=== PATIENT | female | born 1955 | race Native Hawaiian/Other Pacific Islander ===

== ENCOUNTER 2017-12-24 21:12 | Emergency (ER) | payer OTHER ==
[~2017-12-24] VITALS: Ht 170.2 cm; Wt 96.2 kg
[2017-12-24] MEDS ORDERED: TIROSINT50 MCG PO (21:20)
[2017-12-24] MEDS ORDERED: LISI10TA11 PO (21:21)
[2017-12-24] MEDS ORDERED: VITAMIN D50000 UNIT PO (21:23)
[2017-12-24] MEDS ORDERED: ACIDOPHILUS PRO1 TA1 PO (21:26)
[2017-12-24] MEDS ORDERED: CALCIUM 500/VITAMI1 PO (21:26)
[2017-12-24] MEDS ORDERED: AMLODIPINE BESYLATE PO (21:27)
[2017-12-24] MEDS ORDERED: MOBIC15 MG PO (21:28)
[2017-12-24] MEDS ORDERED: ASPIRIN LOW DOS81 MG PO (21:28)
[2017-12-24] MEDS ORDERED: VITAMIN E200 UNIT PO (21:29)
[2017-12-24] MEDS ORDERED: TAB-A-VIT1 PO (21:29)
[2017-12-24] MEDS ORDERED: GLYBURIDE2.5 M1 PO (21:30)
[2017-12-24] MEDS ORDERED: ASCO500T18 PO (21:31)
[2017-12-24] MEDS ORDERED: LIPITOR10 MG PO (21:31)
[2017-12-24 21:32] LABS: PLATELET COUNT 305 K/uL (152-353)
[2017-12-24] MEDS ORDERED: QUET100T2 PO (21:32)
[2017-12-24] MEDS ORDERED: BISACODYL5 M1 PO (21:33)
[2017-12-24] MEDS ORDERED: CLON0.5T36 PO (21:34)
[2017-12-24] MEDS ORDERED: CVS SENNA8.6 MG PO (21:35)
[2017-12-24] MEDS ORDERED: SEROQUEL25 MG PO (21:35)
[2017-12-24 21:36] LABS: POTASSIUM 3.7 mmol/L (3.6-5.2)
[2017-12-24 22:20] VITALS: BP 165/87; TEMP 97.7
[2017-12-25] MEDS ORDERED: UNITH DIRECT50 MCG PO (03:23)
[2017-12-25] MEDS ORDERED: DRISDOL50000 UNIT PO (03:29)
[2017-12-25] MEDS ORDERED: CALCIUM D3 PO (03:34)
[2017-12-25] MEDS ORDERED: [UNRECOGNIZED DRUG - OTHER] PO (03:41)
[2017-12-25] MEDS ORDERED: GLYBURIDE PO (03:43)
== END 2017-12-24 22:20 | disposition other institution (70) ==
LOC: ED 21:12
PROVIDERS: Family Medicine
DX: F20.89 Other schizophrenia (principal); R46.89 Other symptoms and signs involving appearance and behavior; Z04.6 Encounter for general psychiatric examination, requested by authority
CPT/HCPCS: 36415; 80053; 81000; 85027; 93005; 99285